=== PATIENT | female | born 1940 | race Caucasian/White ===

== ENCOUNTER 2022-02-13 14:32 | Outpatient (CLI) | payer MEDICARE | END 2022-02-13 14:33 | disposition home or self-care (01) | LOC: DI 14:32 | PROVIDERS: ATTEND Internal Medicine Cardiovascular Disease | DX: I51.81 Takotsubo syndrome (principal); I50.20 Unspecified systolic (congestive) heart failure; R57.0 Cardiogenic shock | CPT/HCPCS: 93306 ==

== ENCOUNTER 2022-03-29 08:00 | Outpatient (CLI) | payer MEDICARE ==
[2022-03-29 15:09] LABS: BASOPHILS % (AUTO) 0.5 %; EOSINOPHILS # (AUTO) 0.1 10^3/uL (0.0-0.7); EOSINOPHILS % (AUTO) 0.9 %; HCT - HEMATOCRIT 48.9 % (37.0-47.0); HGB - HEMOGLOBIN 15.7 g/dL (12.0-16.0); LYMPHOCYTES # (AUTO) 2.2 10^3/uL (1.5-3.5); LYMPHOCYTES % (AUTO) 26.2 %; MEAN CORPUSCULAR HGB CONC 32.1 g/dL (32.0-36.0); MEAN CORPUSCULAR VOLUME 96.6 fL (81.0-99.0); MONOCYTES # (AUTO) 0.6 10^3/uL (0.0-1.0); MONOCYTES % (AUTO) 7.4 %; NEUTROPHILS # (AUTO) 5.3 10^3/uL (1.5-6.6); NEUTROPHILS % (AUTO) 64.8 %; PLT - PLATELET COUNT 183 10^3/uL (130-450); RED BLOOD COUNT 5.06 10^6/uL (4.20-5.40); RED CELL DISTRIBUTION WIDTH 14.7 % (12.0-15.0); WHITE BLOOD COUNT 8.2 x10^3/uL (4.8-10.8)
[2022-03-29 15:46] LABS: ALBUMIN 4.4 g/dL (3.2-5.5); ALBUMIN/GLOBULIN RATIO 1.5 (1.0-2.2); ALKALINE PHOSPHATASE 55 IU/L (42-121); ALT ALANINE AMINOTRANSFERASE 20 IU/L (10-60); AST ASPARTATE AMINOTRANSFERASE 26 IU/L (10-42); BILIRUBIN,TOTAL 0.9 mg/dL (0.2-1.0); BUN - BLOOD UREA NITROGEN 13 mg/dL (6-20); CALCIUM 9.8 mg/dL (8.5-10.3); CARBON DIOXIDE - CO2 31 mmol/L (21-32); CHLORIDE 102 mmol/L (101-111); CHOL/HDL RATIO 2.7 (<4.4); CHOLESTEROL 243 mg/dL; CK- CREATINE KINASE 142 IU/L (22-269); CREATININE 0.8 mg/dL (0.4-1.0); GFR - MDRD 69 (>89); GLUCOSE 90 mg/dL (70-100); HDL CHOLESTEROL 90 mg/dL; LDL CHOLESTEROL,CALCULATED 142 mg/dL; LDL/HDL RATIO 1.6 (<4.4); MAGNESIUM 2.2 mg/dL (1.7-2.8); SODIUM 141 mmol/L (135-145); TOTAL PROTEIN 7.3 g/dL (6.7-8.2); TRIGLYCERIDES 54 mg/dL; VLDL CHOLESTEROL 11 mg/dL
[2022-03-30 15:09] LABS: VARICELLA-ZOSTER AB IGG 1030 index (Immune >165)
[2022-03-30 20:09] LABS: VARICELLA-ZOSTER AB IGM <0.91 index (0.00-0.90)
== END 2022-03-29 08:01 | disposition home or self-care (01) ==
LOC: LAB.S 08:00
PROVIDERS: ATTEND Internal Medicine
DX: I50.9 Heart failure, unspecified (principal); I51.81 Takotsubo syndrome; R25.2 Cramp and spasm; Z79.899 Other long term (current) drug therapy
CPT/HCPCS: 36415; 80053; 80061; 82550; 83721; 83735; 84443; 85025; 86787

== ENCOUNTER 2022-07-13 14:27 | Emergency (ER) | payer MEDICARE ==
--- NOTE | 2022-07-13 14:52 | ED Physician Documentation ---
PD HPI FOCAL NEURO - Stated complaint Stated Complaint: RAPID HEART BEAT/HEAD PX - Chief complaint Chief Complaint: Neuro - History obtained from History obtained from: Patient, Family - Additional information Additional information: 82-year-old woman with history of hyperlipidemia and TIA last year. Also had Takotsubo's cardiomyopathy last year with resolution of her cardiac function. She is inconsistently compliant with her statin and does not take aspirin anymore, unclear why. Her TIA last year was very brief, less than a minute and it was noted afterwards that she had left carotid stenosis, unclear how severe but did not need intervention. Today she had a 15-second episode of word salad and garbled speech not associated with any difficulty walking or other neurologic complaints. Back to normal now. She had an episode of palpitations just after it happened. Of note she is never had A. fib despite prolonged outpatient cardiac monitoring per her. Review of Systems Ten Systems: 10 systems reviewed and negative Constitutional: denies: Fever, Chills, Fatigue Cardiac: reports: Palpitations. denies: Chest pain / pressure Respiratory: denies: Dyspnea PD PAST MEDICAL HISTORY - Present Medications Home Medications: Ambulatory Orders Medication Instructions Recorded Confirmed Pravastatin [Pravachol] 10 mg PO .TWICE A WEEK 07/13/22 07/13/22 - Allergies Allergies/Adverse Reactions: Allergies Allergy/AdvReac Type Severity Reaction Status Date / Time No Known Drug Allergies Allergy Verified 07/13/22 14:36 PD ED PE NORMAL - Vitals Vital signs reviewed: Yes - General General: Alert and oriented X 3, No acute distress - HEENT HEENT: PERRL, EOMI - Neck Neck: Supple, no meningeal sign, No bony TTP - Cardiac Cardiac: RRR, No murmur - Respiratory Respiratory: No respiratory distress, Clear bilaterally - Abdomen Abdomen: Normal bowel sounds, Soft, Non tender - Back Back: No CVA TTP, No spinal TTP - Derm Derm: Normal color, Warm and dry - Extremities Extremities: No edema, No calf tenderness / cord - Neuro Neuro: Alert and oriented X 3, Normal speech NIHSS - Time Time: 14:55 - Level of Consciousness Level of consciousness: (0) Alert, Keenly responsive LOC Questions: (0) Answers both Q's correct LOC Commands: (0) Performs both correctly - Gaze Best Gaze: (0) Normal - Visual Visual: (0) No loss - Facial Palsy Facial Palsy: (0) Normal, symmetrical movement - Motor Arms (both separate) Motor Arm (right): (0) No drift Motor Arm (left): (0) No drift - Motor Legs (both separate) Motor Leg (right): (0) No drift Motor Leg (left): (0) No drift - Limb Ataxia Limb Ataxia: (0) Absent - Sensory Sensory: (0) Normal - Best Language Best Language: (0) No aphasia - Dysarthria Dysarthria: (0) Normal - Extinction and Inattention (formally neg Extinction and inattention: (0) No abnormality - Total Score/Results Total Score/Result: 0 Results - Vitals Vitals: Vital Signs - 24 hr 07/13/22 07/13/22 14:29 16:57 Temperature 37.4 C Heart Rate 88 75 Respiratory 14 22 Rate Blood Pressure 160/79 H 148/76 H O2 Saturation 100 100 Oxygen O2 Source Room air - EKG (time done) 1500 Rate: Rate (enter#) (67) Rhythm: NSR [place]: LAD Intervals: Normal CO QRS: Normal Ischemia: Non specific changes. No: ST elevation c/w ischemia, ST elevation c/w repol, ST depression, T wave inversion - Labs Labs: Laboratory Tests 07/13/22 07/13/22 15:09 15:09 WBC 8.0 RBC 4.74 Hgb 14.5 Hct 45.8 MCV 96.6 MCH 30.6 MCHC 31.7 L RDW 12.9 Plt Count 165 MPV 10.0 Neut # (Auto) 4.7 Lymph # (Auto) 2.6 [place] # (Auto) 0.6 Eos # (Auto) 0.1 Baso # (Auto) 0.1 Absolute Nucleated RBC 0.00 Nucleated RBC % 0.0 Sodium 138 Potassium 3.9 Chloride 100 L Carbon Dioxide 27 Anion Gap 11.0 BUN 18 Creatinine 0.7 Estimated GFR (MDRD) 81 L Glucose 93 Calcium 9.3 PD MEDICAL DECISION MAKING - ED course ED course: 82-year-old woman with history of known carotid stenosis presents with a very short episode of word finding difficulty concerning for TIA, although she says it was only 15 seconds which would be very short even for a TIA. Her examination is normal at this juncture and her symptoms are gone. She was worked up with CT angiography of the head and neck which showed some left-sided carotid plaque and a 50% stenosis that does not require current intervention but does require monitoring. I had a long talk with the patient and her daughter. She is not currently on aspirin and initially was unclear why. Subsequently it was found out that earlier this year she was on Eliquis for about a month and her aspirin was discontinued then and never restarted. I discussed with her that she needed to be more compliant with her statin and start taking baby aspirin a day and she voices understanding. Her ABCD 2 score is 3 suggesting that outpatient follow-up is safe. Departure - Departure Disposition: 01 Home, Self Care Clinical Impression: TIA (transient ischemic attack) Condition: Good Record reviewed to determine appropriate education?: Yes Instructions: ED Transient Ischemic Attack Comments: You are seen today for an episode that is concerning for TIA, take your pravastatin daily and start taking a baby aspirin, 81 mg a day. Follow-up with your primary care physician, Dr. Miranda, next available appointment. Return for any new or worsening symptoms. You do have a 50% carotid stenosis on the left which needs to be monitored over time by your primary care physician.
[2022-07-13] MEDS ORDERED: iohexoL-300 100 ML VIAL ONE (15:12)
[2022-07-13 15:15] LABS: BASOPHILS # (AUTO) 0.1 10^3/uL (0.0-0.1); BASOPHILS % (AUTO) 0.7 %; EOSINOPHILS # (AUTO) 0.1 10^3/uL (0.0-0.7); EOSINOPHILS % (AUTO) 0.7 %; HCT - HEMATOCRIT 45.8 % (37.0-47.0); HGB - HEMOGLOBIN 14.5 g/dL (12.0-16.0); LYMPHOCYTES # (AUTO) 2.6 10^3/uL (1.5-3.5); LYMPHOCYTES % (AUTO) 32.7 %; MEAN CORPUSCULAR HEMOGLOBIN 30.6 pg (27.0-31.0); MEAN CORPUSCULAR HGB CONC 31.7 g/dL (32.0-36.0); MEAN CORPUSCULAR VOLUME 96.6 fL (81.0-99.0); MONOCYTES # (AUTO) 0.6 10^3/uL (0.0-1.0); MONOCYTES % (AUTO) 7.6 %; NEUTROPHILS # (AUTO) 4.7 10^3/uL (1.5-6.6); NEUTROPHILS % (AUTO) 58.2 %; PLT - PLATELET COUNT 165 10^3/uL (130-450); RED BLOOD COUNT 4.74 10^6/uL (4.20-5.40); RED CELL DISTRIBUTION WIDTH 12.9 % (12.0-15.0)
[2022-07-13 15:23] LABS: CALCIUM 9.3 mg/dL (8.5-10.3); CREATININE 0.7 mg/dL (0.4-1.0); POTASSIUM 3.9 mmol/L (3.5-5.0)
--- NOTE | 2022-07-13 16:21 | CT Report ---
PROCEDURE: ANGIO HEAD W/WO INDICATIONS: tia sx CONTRAST: 80ml omni 300 TECHNIQUE: Precontrast 4.5 mm thick angled axial sections acquired from the foramen magnum to the vertex. Afte r the administration of intravenous contrast, 1 mm thick sections acquired through the [place] of [place] is. Postcontrast 4.5 mm thick sections then re-acquired from the foramen magnum to the vertex. 3-di mensional zrpxogp-jygdvywza-grynbqsote (MIP) and/or volume rendering reformats were acquired of the c entral intracranial vasculature. For radiation dose reduction, the following was used: automated ex posure control, adjustment of mA and/or kV according to patient size. COMPARISON: Same-day CT angiogram neck. FINDINGS: Image quality: Good. Anterior circulation: Intracranial internal carotid arteries are normal in size and flow. The flow within the paired anterior cerebral arteries is normal and symmetric. The flow within the middle cer ebral arteries is normal and symmetric. Dense calcified atherosclerotic plaque at the proximal left M CA. The anterior communicating artery is seen. No aneurysms are seen. Posterior circulation: Visualized portions of the vertebral arteries demonstrate normal caliber, and join to form a normal appearing basilar artery. Flow within the posterior cerebral arteries is norm al and symmetric. No aneurysms are seen. CSF spaces: Ventricles are normal in size and shape. Basal cisterns are patent. No extra-axial flu id collections. Brain: No midline shift. No intracranial bleeds or masses. No area of hypodensity in a vascular di stribution to suggest acute infarction. There is periventricular hypodensity consistent with chronic microvascular ischemic disease. Age-related parenchymal loss. Skull and face: Calvarium and facial bones appear intact, without suspicious lesions. Sinuses: Visualized sinuses and mastoids are clear. IMPRESSION: 1. No acute intracranial hemorrhage. 2. No infarct identified. 3. No large vessel occlusion. Chronic microvascular ischemic disease. Dense calcified plaque at the p roximal left MCA. Reviewed by: Griffin Yang MD on 07/13/2022 3:20 PM AKNURYS Approved by: Griffin Yang MD on 07/13/2022 3:20 PM AKNURYS Station ID: [id number]
--- NOTE | 2022-07-13 16:27 | CT Report ---
PROCEDURE: ANGIO NECK W INDICATIONS: tia sx CONTRAST: 80ml omni 300 TECHNIQUE: After the administration of intravenous contrast, 1.5 mm axial sections acquired from the aortic arch to the [place]. Coronal 3-D maximum intensity projection (MIP) and/or volume rendering ref ormats were then performed. For radiation dose reduction, the following was used: automated exposur e control, adjustment of mA and/or kV according to patient size. COMPARISON: Same day noncontrast head and CTA head. FINDINGS: Image quality: Good. Carotid system: The great vessels demonstrate a conventional anatomy as they arise from the aortic a rch. The origins of the common carotid arteries appear patent. The common carotid arteries demonstr ate normal calibers and courses. Mild plaque at the right carotid bulb. Moderate plaque at the left c arotid bulb. There is approximately 50% stenosis on the left. Posterior circulation: The origins of the vertebral arteries appear patent. The more superior porti ons of the vertebral arteries demonstrate normal course and caliber. They join to form a normal appe aring basilar artery. Soft tissues: Visualized neck soft tissues demonstrate no suspicious abnormalities. The thyroid is normal in size and there are no incidental findings. Suspect pleural apical scarring on the right. Bones: No suspicious bony lesions. Moderate degenerative change in the cervical spine. Visualized ce rvical spine appears normally aligned. IMPRESSION: 1. No large vessel occlusion. 2. No critical stenosis. There is approximately 50% stenosis at the left carotid bulb. The estimate of stenosis included in the report of the imaging study was calculated using the NASCET method Reviewed by: Griffin Yang MD on 07/13/2022 3:25 PM COSME Approved by: Griffin Yang MD on 07/13/2022 3:25 PM COSME Station ID: [id number]
[2022-07-13] MEDS ORDERED: ASPIRIN CHEW 81 MG TABLET PO STA (17:18)
[2022-07-13] MEDS ORDERED: iohexoL-300 100 ML VIAL IVP ONE (17:38)
[2022-07-13 17:39] VITALS: BP 145/77
== END 2022-07-13 17:39 | disposition home or self-care (01) ==
LOC: ED 14:27
DX: G45.9 Transient cerebral ischemic attack, unspecified (principal); T46.6X6A Underdosing of antihyperlipidemic and antiarteriosclerotic drugs, initial encounter
CPT/HCPCS: 36415; 70496; 70498; 80048; 85025; 93005; 99284; A9270; Q9967

== ENCOUNTER 2023-04-29 11:51 | Outpatient (CLI) | payer MEDICARE ==
--- NOTE | 2023-04-29 14:18 | Ultrasound Report ---
PROCEDURE: Duplex Ext Veins Left INDICATIONS: EDEMA TECHNIQUE: Real-time imaging, as well as color and pulse Doppler interrogation, were performed of the lower extr emity deep veins from the inguinal ligament to the popliteal fossa. COMPARISON: None. FINDINGS: The deep veins are normally compressible, and free of intraluminal thrombus. Color and pu lse Doppler demonstrate normal phasic intraluminal flow. There is normal augmentation response to di stal compression maneuver. IMPRESSION: Negative for DVT. Reviewed by: Jose Bingham MD on 04/29/2023 2:17 PM PDT Approved by: Jose Bingham MD on 04/29/2023 2:17 PM PDT Station ID: [id number]
== END 2023-04-29 11:52 | disposition home or self-care (01) ==
LOC: DI 11:51
PROVIDERS: ATTEND Internal Medicine
DX: R60.9 Edema, unspecified (principal)

== ENCOUNTER 2023-05-08 10:27 | Outpatient (CLI) | payer MEDICARE ==
--- NOTE | 2023-05-09 12:56 | Mammography Report ---
BILATERAL DIGITAL SCREENING MAMMOGRAM 3D/2D: 05/08/2023 CLINICAL: Routine screening. Family history of breast cancer. No prior exams were available for comparison. Both breasts are extremely dense, which lowers the sensitivity of mammography (category d />75% gland ular tissue). There is an asymmetry in the left breast posterior depth superior region seen on the mediolateral obl ique view only. No other significant masses, calcifications, or other findings are seen in either breast. IMPRESSION: INCOMPLETE: NEEDS ADDITIONAL IMAGING EVALUATION The asymmetry in the left breast is indeterminate. Additional views with possible ultrasound are rec ommended. This could be a prominent lymph node or fibroglandular tissue. Based on the Tyrer Cuzick model (a risk assessment model) the patients lifetime risk is 1.4% and her 10 year risk is 0.0%. According to the ACR, ACS, and NCCN guidelines, an annual breast MRI exam gogo g with mammogram is recommended if the patients lifetime risk is 20% or greater. This exam was interpreted at Station ID: [id number]. NOTE: For mammograms, a report in lay terms will be sent to the patient. Approximately 15% of breast malignancies will not be visualized mammographically. In the management of a palpable breast mass, a negative mammogram must not discourage biopsy of a clinically suspicious lesion. Electronically Signed By: Jose Bingham M.D. lc/:05/08/2023 11:17:08 ACR BI-RADS Category 0: Incomplete 3340F PARENCHYMAL PATTERN: (VD) - The breast(s) demonstrate(s) extremely dense parenchyma, limiting the sen sitivity of mammography. BI-RADS CATEGORY: (0) - 0 Mammo and [place] [id number] Immediate follow-up LATERALITY: (B)
== END 2023-05-08 10:28 | disposition home or self-care (01) ==
LOC: DI.S 10:27
PROVIDERS: ATTEND Internal Medicine
DX: Z12.31 Encounter for screening mammogram for malignant neoplasm of breast (principal); Z80.3 Family history of malignant neoplasm of breast; R92.8 Other abnormal and inconclusive findings on diagnostic imaging of breast

== ENCOUNTER 2023-05-12 11:38 | Outpatient (CLI) | payer MEDICARE ==
[2023-05-12 12:22] LABS: CREATININE,URINE 24.6 mg/dL
[2023-05-20 14:08] LABS: CREATININE URINE 21.8 mg/dL (Not Estab.); CREATININE URINE 24HR 534 mg/24 hr (800-1800); PROTEIN URINE 24HR 1617 mg/24 hr (30-150)
== END 2023-05-12 11:39 | disposition home or self-care (01) ==
LOC: LAB 11:38
PROVIDERS: ATTEND Internal Medicine
DX: R80.9 Proteinuria, unspecified (principal)
CPT/HCPCS: 82570; 84156; 84166

== ENCOUNTER 2023-06-20 10:12 | Outpatient (CLI) | payer MEDICARE ==
--- NOTE | 2023-06-23 09:34 | Mammography Report ---
UNILATERAL LEFT DIGITAL DIAGNOSTIC MAMMOGRAM 3D/2D: 06/20/2023 CLINICAL: Patient returns today to evaluate an asymmetry in the left breast. Comparison is made to exam dated: 05/08/2023 mammogram - [facility]. The left breast is extremely dense, which lowers the sensitivity of mammography (category d />75% gla ndular tissue). There is an oval equal density asymmetry in the left breast posterior depth superior region seen on t he mediolateral oblique view only. This is not confirmed in additional views and is less prominent. No other significant masses or calcifications are seen in the breast. IMPRESSION: INCOMPLETE: NEEDS ADDITIONAL IMAGING EVALUATION The oval equal density asymmetry in the left breast resembles fibroglandular tissue and is indetermin ate. An ultrasound is recommended for further evaluation and is scheduled to immediately follow thi s examination. Based on the Tyrer Cuzick model (a risk assessment model) the patients lifetime risk is 1.4% and her 10 year risk is 0.0%. According to the ACR, ACS, and NCCN guidelines, an annual breast MRI exam gogo g with mammogram is recommended if the patients lifetime risk is 20% or greater. This exam was interpreted at Station ID: [id number]. NOTE: For mammograms, a report in lay terms will be sent to the patient. Approximately 15% of breast malignancies will not be visualized mammographically. In the management of a palpable breast mass, a negative mammogram must not discourage biopsy of a clinically suspicious lesion. Electronically Signed By: Meir Pascal M.D. aty/:06/20/2023 13:10:40 ACR BI-RADS Category 0: Incomplete 3340F PARENCHYMAL PATTERN: (VD) - The breast(s) demonstrate(s) extremely dense parenchyma, limiting the sen sitivity of mammography. BI-RADS CATEGORY: (0) - 0 Ultrasound [id number] Immediate follow-up LATERALITY: (L)
--- NOTE | 2023-06-23 09:34 | Ultrasound Report ---
LIMITED ULTRASOUND OF LEFT BREAST AND AXILLA: 06/20/2023 CLINICAL: Patient returns today to evaluate a focal asymmetry in the left breast. Comparison is made to exam dated: 05/08/2023 mammogram - [facility]. Color flow ultrasound of the left breast 2 o'clock, and axilla regions was performed. Oconnell scale im ages of the real-time examination were reviewed. No significant abnormalities were seen sonographically in the left breast. IMPRESSION: NEGATIVE There is no sonographic evidence of malignancy. There is no abnormality seen in the left breast to correspond with the mammography finding which like ly represents normal fibroglandular tissue. A 1 year screening mammogram is recommended. Findings and recommendations were conveyed to the patient during today's evaluation. This exam was interpreted at Station ID: [id number]. Electronically Signed By: Meir Pascal M.D. aty/:06/20/2023 13:11:59 Ultrasound BI-RADS: 1 Negative BI-RADS CATEGORY: (1) - 1 Mammogram [id number] 1 year screening LATERALITY: (B)
== END 2023-06-20 10:13 | disposition home or self-care (01) ==
LOC: DI 10:12
PROVIDERS: ATTEND Internal Medicine
DX: R92.8 Other abnormal and inconclusive findings on diagnostic imaging of breast (principal); R92.342 Mammographic extreme density, left breast

== ENCOUNTER 2023-06-30 12:33 | Outpatient (CLI) | payer MEDICARE ==
--- NOTE | 2023-06-30 15:17 | Ultrasound Report ---
PROCEDURE: Carotid Doppler Complete INDICATIONS: CAROTID ARTERY STENOSIS TECHNIQUE: Color and pulse Doppler interrogation was performed of both carotid systems, with image documentation and velocity measurements. COMPARISON: CT angiography neck 07/13/2022. FINDINGS: Right side: Brachial blood pressure: 128/37 mm Hg. Common carotid artery peak systolic velocity: 82 cm/sec. Internal carotid artery peak systolic velocity: 86 cm/sec. Internal carotid artery end diastolic velocity: 21 cm/sec. External carotid artery peak systolic velocity: 69 cm/sec. ICA/CCA peak systolic ratio: 1.05 . Oconnell scale imaging description: Small plaque in the proximal right ECA. Percent internal carotid artery stenosis: Less than 50 percent stenosis. Vertebral artery: Flow direction is antegrade. Left side: Brachial blood pressure: 134/54 mm Hg. Common carotid artery peak systolic velocity: 67 cm/sec. Internal carotid artery peak systolic velocity: 90 cm/sec. Internal carotid artery end diastolic velocity: 23 cm/sec. External carotid artery peak systolic velocity: 72 cm/sec. ICA/CCA peak systolic ratio: 1.34 . Oconnell scale imaging description: Greater than 50% stenosis by atherosclerotic plaques at the carotid bulb/proximal ICA. Percent internal carotid artery stenosis: 50-69 percent stenosis. Vertebral artery: Flow direction is antegrade. IMPRESSION: 1. In the right internal carotid artery, there is less than 50 percent stenosis based on peak systoli c velocity criteria. 2. In the left internal carotid artery, there is 50-69 percent stenosis based on arterial narrowing s econdary to atherosclerotic plaques. However, the velocity is not elevated. 3. Antegrade blood flow within the right vertebral artery. 4. Antegrade blood flow within the left vertebral artery. The estimate of stenosis included in the report of the imaging study was calculated using the [facility]-end orsed standards of carotid artery stenosis. Reviewed by: Nitesh Martinez MD on 06/30/2023 3:16 PM PDT Approved by: Nitesh Martinez MD on 06/30/2023 3:16 PM PDT Station ID: [id number]
== END 2023-06-30 12:34 | disposition home or self-care (01) ==
LOC: DI 12:33
PROVIDERS: ATTEND Internal Medicine
DX: I65.23 Occlusion and stenosis of bilateral carotid arteries (principal)
CPT/HCPCS: 93880

== ENCOUNTER 2023-07-09 10:37 | Outpatient (CLI) | payer MEDICARE ==
[2023-07-09 11:16] LABS: ESTIMATED AVERAGE GLUCOSE 111 mg/dL (70-100); HEMOGLOBIN A1c% 5.5 % (4.27-6.07)
[2023-07-09 11:19] LABS: ALBUMIN 3.4 g/dL (3.2-5.5); ALBUMIN/GLOBULIN RATIO 1.4 (1.0-2.2); ALKALINE PHOSPHATASE 78 IU/L (42-121); ALT ALANINE AMINOTRANSFERASE 13 IU/L (10-60); AST ASPARTATE AMINOTRANSFERASE 23 IU/L (10-42); BILIRUBIN,TOTAL 0.5 mg/dL (0.2-1.0); BUN - BLOOD UREA NITROGEN 13 mg/dL (6-20); CALCIUM 9.2 mg/dL (8.5-10.3); CARBON DIOXIDE - CO2 32 mmol/L (21-32); CHLORIDE 104 mmol/L (101-111); CHOL/HDL RATIO 2.4 (<4.4); CHOLESTEROL 255 mg/dL; CK- CREATINE KINASE 116 IU/L (30-223); CREATININE 0.6 mg/dL (0.6-1.3); GFR - MDRD 96 (>89); GLUCOSE 85 mg/dL (74-104); HDL CHOLESTEROL 105 mg/dL; LDL CHOLESTEROL,CALCULATED 129 mg/dL; LDL/HDL RATIO 1.2 (<4.4); POTASSIUM 3.9 mmol/L (3.5-4.5); SODIUM 139 mmol/L (135-145); TOTAL PROTEIN 5.8 g/dL (6.4-8.9); TRIGLYCERIDES 103 mg/dL (48-352); VLDL CHOLESTEROL 21 mg/dL
[2023-07-09 11:32] LABS: THYROID STIMULATING HORMONE 2.67 uIU/mL (0.34-5.60)
[2023-07-09 11:33] LABS: CREATININE,URINE 42.8 mg/dL
[2023-07-09 11:44] LABS: MICROALBUM/CREATININE RATIO,UR 3252.3 ug/mg (<30.0); MICROALBUMIN,URINE 139.2 mg/dL
== END 2023-07-09 10:38 | disposition home or self-care (01) ==
LOC: LAB 10:37
PROVIDERS: ATTEND Student in an Organized Health Care Education/Training Program
DX: E78.5 Hyperlipidemia, unspecified (principal)
CPT/HCPCS: 36415; 80053; 80061; 81599; 82043; 82172; 82550; 82570; 83036; 83695; 83721; 84443

== ENCOUNTER 2023-10-07 13:20 | Outpatient (CLI) | payer MEDICARE ==
[2023-10-07 13:56] LABS: BASOPHILS % (AUTO) 0.6 %; EOSINOPHILS # (AUTO) 0.1 10^3/uL (0.0-0.7); EOSINOPHILS % (AUTO) 0.7 %; HCT - HEMATOCRIT 44.7 % (37.0-47.0); HGB - HEMOGLOBIN 14.3 g/dL (12.0-16.0); LYMPHOCYTES # (AUTO) 2.2 10^3/uL (1.5-3.5); LYMPHOCYTES % (AUTO) 32.8 %; MEAN CORPUSCULAR HEMOGLOBIN 30.9 pg (27.0-31.0); MEAN CORPUSCULAR VOLUME 96.5 fL (81.0-99.0); MEAN PLATELET VOLUME 10.1 fL (7.9-10.8); MONOCYTES # (AUTO) 0.5 10^3/uL (0.0-1.0); MONOCYTES % (AUTO) 7.1 %; NEUTROPHILS # (AUTO) 3.9 10^3/uL (1.5-6.6); NEUTROPHILS % (AUTO) 58.7 %; PLT - PLATELET COUNT 209 10^3/uL (130-450); RED BLOOD COUNT 4.63 10^6/uL (4.20-5.40); RED CELL DISTRIBUTION WIDTH 12.5 % (12.0-15.0); WHITE BLOOD COUNT 6.7 x10^3/uL (4.8-10.8)
[2023-10-07 14:06] LABS: BILIRUBIN,URINE NEGATIVE (NEGATIVE); GLUCOSE, URINE (UA) NEGATIVE (NEGATIVE); KETONES,URINE (UA) NEGATIVE (NEGATIVE); LEUKOCYTE ESTERASE, URINE NEGATIVE (NEGATIVE); NITRITE,URINE NEGATIVE (NEGATIVE); OCCULT BLOOD,URINE MODERATE (NEGATIVE); PROTEIN,URINE >=300 mg/dL (NEGATIVE); UROBILINOGEN,URINE 0.2 (NORMAL) E.U./dL (NORMAL)
[2023-10-07 14:07] LABS: CLARITY,URINE CLEAR (CLEAR)
[2023-10-07 14:18] LABS: RBC,URINE 0-5 /HPF (0-5); SQUAMOUS EPITHELIAL CELL,UR NONE SEEN (<= Few); WBC,URINE 0-3 /HPF (0-5)
[2023-10-07 14:19] LABS: BACTERIA,URINE Rare /HPF (None Seen)
[2023-10-07 14:30] LABS: ALBUMIN 3.3 g/dL (3.2-5.5); ALKALINE PHOSPHATASE 67 IU/L (42-121); ALT ALANINE AMINOTRANSFERASE 14 IU/L (10-60); AST ASPARTATE AMINOTRANSFERASE 23 IU/L (10-42); BILIRUBIN,DIRECT < 0.10 mg/dL (0.03-0.18); BILIRUBIN,TOTAL 0.4 mg/dL (0.2-1.0); BUN - BLOOD UREA NITROGEN 13 mg/dL (6-20); CARBON DIOXIDE - CO2 30 mmol/L (21-32); CHLORIDE 103 mmol/L (101-111); CK- CREATINE KINASE 122 IU/L (30-223); CREATININE 0.7 mg/dL (0.6-1.3); CRP - C-REACTIVE PROTEIN < 0.5 mg/dL (<0.5); GFR - MDRD 80 (>89); GLUCOSE 86 mg/dL (74-104); PHOSPHORUS 3.8 mg/dL (2.5-5.0); POTASSIUM 4.2 mmol/L (3.5-4.5); SODIUM 137 mmol/L (135-145); TOTAL PROTEIN 5.8 g/dL (6.4-8.9); URIC ACID 4.3 mg/dL (2.3-6.6)
[2023-10-07 14:33] LABS: CREATININE,URINE 26.6 mg/dL; PROTEIN/CREATININE RATIO,URINE 5.8 (<=0.2)
[2023-10-08 03:10] LABS: COMPLEMENT C3 109 mg/dL (82-167); COMPLEMENT C4 19 mg/dL (12-38); HCV AB Non Reactive (Non Reactive)
[2023-10-08 04:09] LABS: HBsAG SCREEN Negative (Negative); RPR Non Reactive (Non Reactive)
[2023-10-08 17:12] LABS: KAPPA FREE LT CHAINS SERUM 19.9 mg/L (3.3-19.4); KAPPA/LAMBDA RATIO SERUM 1.24 (0.26-1.65)
[2023-10-08 18:07] LABS: ANTINUCLEAR ANTIBODIES IFA Negative (.)
[2023-10-09 13:11] LABS: A/G RATIO 1.3 (0.7-1.7); ALBUMIN 2.9 g/dL (2.9-4.4); ALPHA-1-GLOBULIN 0.2 g/dL (0.0-0.4); ALPHA-2-GLOBULIN 0.7 g/dL (0.4-1.0); BETA GLOBULIN 0.8 g/dL (0.7-1.3); GAMMA GLOBULIN 0.6 g/dL (0.4-1.8); GLOBULIN, TOTAL 2.3 g/dL (2.2-3.9); IMMUNOGLOBULIN A (IGA) 111 mg/dL (64-422); IMMUNOGLOBULIN G (IGG) 600 mg/dL (586-1602); IMMUNOGLOBULIN M (IGM) 86 mg/dL (26-217); PROTEIN TOTAL 5.2 g/dL (6.0-8.5)
== END 2023-10-07 13:21 | disposition home or self-care (01) ==
LOC: LAB 13:20
PROVIDERS: ATTEND Internal Medicine Nephrology
DX: R80.9 Proteinuria, unspecified (principal)
CPT/HCPCS: 36415; 80069; 80076; 81001; 81599; 82550; 82570; 82784; 83516; 83521; 83970; 84155; 84156; 84165; 84550; 85025; 86038; 86140; 86160; 86334; 86592; 86803; 87086; 87340

== ENCOUNTER 2023-11-19 10:39 | Outpatient (CLI) | payer MEDICARE ==
[2023-11-19 11:12] LABS: CHOL/HDL RATIO 2.5 (<4.4); CHOLESTEROL 238 mg/dL; HDL CHOLESTEROL 95 mg/dL; LDL CHOLESTEROL,CALCULATED 123 mg/dL; LDL/HDL RATIO 1.3 (<4.4); TRIGLYCERIDES 102 mg/dL (48-352); VLDL CHOLESTEROL 20 mg/dL
== END 2023-11-19 10:40 | disposition home or self-care (01) ==
LOC: LAB 10:39
PROVIDERS: ATTEND Student in an Organized Health Care Education/Training Program
DX: E78.5 Hyperlipidemia, unspecified (principal)
CPT/HCPCS: 36415; 80061; 83721

== ENCOUNTER 2023-12-11 12:41 | Outpatient (CLI) | payer MEDICARE ==
[2023-12-11 13:08] LABS: ALBUMIN 3.4 g/dL (3.2-5.5); CALCIUM 9.4 mg/dL (8.5-10.3); CREATININE 0.7 mg/dL (0.6-1.3); PHOSPHORUS 3.6 mg/dL (2.5-5.0); POTASSIUM 4.4 mmol/L (3.5-4.5)
== END 2023-12-11 12:42 | disposition home or self-care (01) ==
LOC: LAB 12:41
PROVIDERS: ATTEND Internal Medicine Nephrology
DX: N18.2 Chronic kidney disease, stage 2 (mild) (principal); R31.9 Hematuria, unspecified
CPT/HCPCS: 36415; 80069

== ENCOUNTER 2024-02-04 12:14 | Outpatient (CLI) | payer MEDICARE ==
[2024-02-04 12:42] LABS: ALBUMIN 3.5 g/dL (3.2-5.5); PHOSPHORUS 3.7 mg/dL (2.5-5.0)
[2024-02-04 12:45] LABS: CALCIUM 9.4 mg/dL (8.5-10.3); CREATININE 0.7 mg/dL (0.6-1.3); POTASSIUM 4.5 mmol/L (3.5-4.5)
== END 2024-02-04 12:15 | disposition home or self-care (01) ==
LOC: LAB 12:14
PROVIDERS: ATTEND Internal Medicine Nephrology
DX: N18.2 Chronic kidney disease, stage 2 (mild) (principal); R31.9 Hematuria, unspecified
CPT/HCPCS: 36415; 80069

== ENCOUNTER 2024-02-11 09:41 | Outpatient (CLI) | payer MEDICARE ==
[2024-02-11 10:14] LABS: CHOL/HDL RATIO 2.2 (<4.4); CHOLESTEROL 227 mg/dL; HDL CHOLESTEROL 103 mg/dL; LDL CHOLESTEROL,CALCULATED 108 mg/dL; TRIGLYCERIDES 78 mg/dL (48-352); VLDL CHOLESTEROL 16 mg/dL
== END 2024-02-11 09:42 | disposition home or self-care (01) ==
LOC: LAB 09:41
PROVIDERS: ATTEND Student in an Organized Health Care Education/Training Program
DX: E78.41 Elevated Lipoprotein(a) (principal); E78.00 Pure hypercholesterolemia, unspecified
CPT/HCPCS: 36415; 80061; 83721

== ENCOUNTER 2024-02-26 14:03 | Outpatient (CLI) | payer MEDICARE ==
[2024-02-26 14:37] LABS: MAGNESIUM 1.8 mg/dL (1.7-2.3)
[2024-02-26 14:59] LABS: CREATININE 0.7 mg/dL (0.6-1.3); POTASSIUM 4.6 mmol/L (3.5-4.5)
== END 2024-02-26 14:04 | disposition home or self-care (01) ==
LOC: LAB 14:03
PROVIDERS: ATTEND Internal Medicine
DX: G24.5 Blepharospasm (principal)
CPT/HCPCS: 36415; 80048; 83735

== ENCOUNTER 2024-03-25 07:00 | Outpatient (CLI) | payer MEDICARE ==
--- NOTE | 2024-03-26 13:02 | XRAY Report ---
PROCEDURE: Shoulder 2+V RT INDICATIONS: RIGHT SHOULDER PAIN/FALL TECHNIQUE: 4 views of the shoulder were acquired. COMPARISON: None. FINDINGS: Bones: No fractures or dislocations. Moderate acromioclavicular and glenohumeral joint space narrow ing and juxta-articular osteophytosis. No suspicious bony lesions. Visualized ribs appear intact. Soft tissues: No suspicious soft tissue calcifications. The visualized lungs are within normal limi ts. IMPRESSION: 1.No acute bony abnormality. If pain persists with conservative management, consider repeat radiograp hs in 10-14 days or cross-sectional imaging. 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 Reviewed by: Dyan Ren MD on 03/26/2024 1:01 PM PDT Approved by: Dyan Ren MD on 03/26/2024 1:01 PM PDT Station ID: [id number]
== END 2024-03-25 23:59 | disposition home or self-care (01) ==
LOC: DI.S 07:00
PROVIDERS: ATTEND Registered Nurse
DX: M19.011 Primary osteoarthritis, right shoulder (principal)